=== PATIENT | male | born 1970 | race Caucasian/White ===

== ENCOUNTER 2021-12-31 20:08 | Inpatient (IN) | payer SELFPAY ==
[~2021-12-31] VITALS: Ht 160 cm; Wt 67.0 kg
[2021-12-31 21:40] LABS: BASO # 0.1 K/mm3 (0.0-0.2); BASO % 1.2 % (0.0-2.0); EOS # 0.1 K/mm3 (0.0-0.7); EOS % 1.3 % (0.0-4.0); GRAN # 2.9 K/mm3 (1.4-6.5); GRAN % 37.9 % (42.2-75.2); HEMOGLOBIN 12.5 g/dl (13.5-18.0); LYMPH # 4.2 K/mm3 (1.2-3.4); LYMPH % 54.6 % (20.0-51.0); MEAN CELL VOLUME 94 fl (80.0-100.0); MEAN CORPUSCULAR HEMOGLOBIN 30 pg (27-31); MEAN CORPUSCULAR HGB CONC 32 g/dl (33.0-37.0); MEAN PLATELET VOLUME 10.4 fl (7.4-10.4); MONO # 0.4 K/mm3 (0.1-0.6); MONO % 4.9 % (1.7-9.3); PLATELET COUNT 206 K/mm3 (130-400); RED BLOOD COUNT 4.17 M/mm3 (4.20-5.60); REDCELL DISTRIBUTION WIDTH-CV 13.8 % (11.5-14.5)
[2021-12-31 21:53] LABS: ALBUMIN 3.3 gm/dL (3.5-5.0); BILIRUBIN,TOTAL 0.5 mg/dL (0.2-1.2); C-REACTIVE PROTEIN 0.7 mg/dL (0.00-0.50); CALCIUM 8.2 mg/dL (8.4-10.2); CREATININE, serum 0.91 mg/dL (0.72-1.25); POTASSIUM 3.8 mmol/L (3.5-4.5); TOTAL PROTEIN 6.4 gm/dL (6.2-8.1)
[2021-12-31 22:01] LABS: TROPONIN-I 0.19 ng/mL (0.00-0.033)
--- NOTE | 2022-01-01 00:39 | NUR ---
RECEIVED REPORT FROM Nabil RN, CODIE. WAITING FOR PATIENT ARRIVAL FROM ED FOR ADMIT TO ROOM 329. INFORMED THAT PATIENT IS FRENCH SPEAKING ONLY.
--- NOTE | 2022-01-01 00:56 | NUR ---
PATIENT ARRIVED TO ROOM VIA W/C WITH E.RSarah PCT TRANSPORTING PATIENT. PATIENT UP TO BATHROOM. TELE IN PLACE. DAUGHTER PRESENT TO ASSIST WITH ADMIT QUESTIONS.
[2022-01-01 01:04] VITALS: BP 134/81; PULSE 98; TEMP 97.9
[2022-01-01 01:21] LABS: C-REACTIVE PROTEIN 0.71 mg/dL (0.00-0.50); MAGNESIUM 2.2 mg/dL (1.6-2.6); PHOSPHOROUS 3.9 mg/dL (2.3-4.7)
[2022-01-01 01:41] LABS: THYROID STIMULATING HORMONE 3.197 uIU/mL (0.350-4.940)
--- NOTE | 2022-01-01 04:17 | NUR ---
PER TELE, RHYTHM CHANGES WITH PATIENT DENYING CHEST PAIN/SOA AT THIS TIME. HR MID 90'S PER TELE. INFORMED AUGUSTIN BEE OF RHYTHM CHANGES, PROVIDER WANTING 0500 LABS TO BE DRAWN NOW AND LET THEM KNOW OF RESULTS.
[2022-01-01 04:35] VITALS: BP 133/68; PULSE 95; TEMP 98.7
[2022-01-01 04:39] LABS: CALCIUM 8.5 mg/dL (8.4-10.2); CREATININE, serum 0.86 mg/dL (0.72-1.25); POTASSIUM 3.6 mmol/L (3.5-4.5)
--- NOTE | 2022-01-01 05:22 | NUR ---
INFORMED AUGUSTIN BEE OF LABS RESULTED WITH ORDERS GIVEN TO INITIATE POTASSION REPLACEMENT PROTOCOL AND FOR LAB DRAW FOR MAGNESIUM ON BLOOD ALREADY DRAWN EARLIER.
[2022-01-01 06:15] LABS: COLLECTION METHOD CLEAN CATCH
[2022-01-01 06:21] LABS: PH 5 (5-8); SQUAMOUS EPITHELIAL None Seen /hpf (0-10); URINE APPEARANCE Clear (CLEAR/HAZY); URINE BACTERIA None Seen /hpf (NONE SEEN); URINE BILIRUBIN Negative (NEGATIVE); URINE BLOOD 1+ (NEGATIVE); URINE COLOR Straw (YELLOW); URINE GLUCOSE Negative (NEGATIVE); URINE KETONE Negative (NEGATIVE); URINE LEUKOCYTE ESTERASE Negative (NEGATIVE); URINE NITRATE Negative (NEGATIVE); URINE PROTEIN(semi-quant) Negative (NEGATIVE); URINE RBC 0-2 /hpf (0-2); URINE UROBILINOGEN Negative (NEGATIVE)
[2022-01-01 07:00] VITALS: BP 123/96; PULSE 75; TEMP 97.6
--- NOTE | 2022-01-01 07:21 | NUR ---
CHANGE OF SHIFT REPORT GIVEN TO DAY SHIFT RNMAT.
--- NOTE | 2022-01-01 07:30 | NUR ---
PATIENT IS [place] SPEAKING ONLY. USED TRANSLATION TO COMMUNICATE. A&O. VSS ON TELE. NOTED PVC'S AND HEART SOUNDS IRREGULAR AT TIMES. DENIES CHEST PAIN OR SOA. PATIENT DOES REPORT SOME SWELLING IN HIS FEET/ANKLES. NOTED +1 BLE. POSITIVE PEDAL PULSES. ALSO NOTED HALF DOLLAR SIZE LUMP TO RIGHT SHOULDER WITH PEA SIZE SCAB. PATIENT REPORTS LUMP HAS BEEN THERE FOR YEARS AND HE HASN'T SEE A PCP FOR MANY YEARS. NO MEDICAL HX OTHER THAN PATIENT REPORTS HE IS A SMOKER. HEAD TO TOE ASSESSMENT COMPLETE. NOTED FC IN LUNG FIELD BASES. 1,500CC FR. LOW SODIUM DIET. CARDS CONSULTED. ECHO SCHEDULED TODAY. RIGHT AC IV TO INT. NO OTHER NEEDS AT THIS TIME. CALL LIGHT IN REACH.
--- NOTE | 2022-01-01 09:05 | NUR ---
CARDIOLOGY TEAM AT BEDSIDE. LIVE TRUCK OPERATOR LINE CALLED TO DISCUSS HEPARIN GTT AND HEART CATH FOR TOMORROW.
--- NOTE | 2022-01-01 09:44 | NUR ---
Initial visit; Patient thanked [employer] for offering "good morning" and prayer this morning. [employer] wished patient well.
[2022-01-01 09:58] LABS: PARTIAL THROMBOPLASTIN TIME 34.1 SECONDS (26.0-37.0)
--- NOTE | 2022-01-01 09:59 | NUR ---
DAUGHTER TRANSFERED INTO PATIENT ROOM TO TALK WITH HIM. DAUGHTER SPEAKS FINNISH WELL. PATIENT'S OTHER DAUGHTER WHO ALSO SPEAKS FINNISH WILL BE HERE LATER TODAY.
--- NOTE | 2022-01-01 10:56 | NUR ---
Shift assessment completed. Respirations at 24 breaths per minute, with fine crackles in bilateral lower bases. Apical pulse at 100 BPM with PVC noted, primary RN notified. Patient is on telemettry. Patient has an INT in the Right AC, no infiltration or phelbitis noted. Raised, slightly red area approximately 4cm-5cm in diameter with peas sized scab on the apex noted on right upper back, primary RN notified.
--- NOTE | 2022-01-01 11:04 | NUR ---
connection worker met with patient to discuss discharge plan. Patient's daughter Agustina ([phone]) present at bedside. Patient lives alone in [place], however his father is in town and currently staying with him. Patient is independent with his ADL's and does not utilize any DME to assist with mobility. Patient has no oxygen needs at home. Patient is established with the [facility], but has not been there for a few years. Educated Agustina that upon d/c, patient will be set up with a follow up. Patient utilizes [facility] for medications. Patient does not have a DPOA-HC established and does not wish to create one at this time. Patient has 3 grown daughters and is seperated from his (Ama Mcdonough [phone]) but not legally . Education provided on who his legal NOK is, and the patient is agreeable to Ama being his legal NOK. Both patient and Agustina verbalize their understanding of the above. Once medically ready patient is planning on returning home with no concerns. Piper with financial counseling contacted to complete FAA with patient. Educated both the patient and his daughter on what the FAA is and how it would help the patient. Discharge plan: Home; will need to be re-established with the [facility]
[2022-01-01 11:13] VITALS: BP 154/94; PULSE 92; TEMP 97.3
[2022-01-01 16:00] VITALS: BP 140/88; PULSE 46; TEMP 98.7
--- NOTE | 2022-01-01 19:25 | NUR ---
RECEIVED CHANGE OF SHIFT REPORT FROM DAY SHIFT RN.
[2022-01-01 19:57] VITALS: BP 137/72; PULSE 44; TEMP 98.5
[2022-01-02] VITALS (331 sets, daily range): BP systolic 58–155; BP diastolic 32–82; PULSE 54–99; TEMP 97.2–98.4; O2SAT 87–100
--- NOTE | 2022-01-02 02:28 | NUR ---
PATIENT RESTING/SLEEPING. BREATHING NONLABORED AND DOES NOT WAKE WHEN DOOR TO ROOM IS OPENED BY NURSING ON ROUNDS. IV HEPARIN DRIP INFUSING AT 12 ML/HR PER HEP PROTOCOL, NEXT HEP XA LAB DUE AT 0400. TELE IN PLACE. PATIENT UP TO BATHROOM PRN WITH NO REPORTED PROBLEMS OR CONCERNS. PATIENT HAS BEEN NPO SINCE MIDNIGHT.
[2022-01-02 04:24] LABS: HEMATOCRIT 43.3 % (42.0-52.0); HEMOGLOBIN 14.4 g/dl (13.5-18.0); MEAN CELL VOLUME 91 fl (80.0-100.0); MEAN CORPUSCULAR HEMOGLOBIN 30 pg (27-31); MEAN CORPUSCULAR HGB CONC 33 g/dl (33.0-37.0); PLATELET COUNT 218 K/mm3 (130-400); RED BLOOD COUNT 4.76 M/mm3 (4.20-5.60); REDCELL DISTRIBUTION WIDTH-CV 13.8 % (11.5-14.5)
[2022-01-02 04:26] LABS: INR 1.3 (0.8-3.0); PROTHROMBIN TIME 13.9 SECONDS (9.7-12.8)
[2022-01-02 04:29] LABS: PARTIAL THROMBOPLASTIN TIME 87.1 SECONDS (26.0-37.0)
[2022-01-02 04:30] LABS: CALCIUM 8.7 mg/dL (8.4-10.2); CHOLESTEROL RISK RATIO 5.1; CREATININE, serum 0.96 mg/dL (0.72-1.25); MAGNESIUM 2.4 mg/dL (1.6-2.6); POTASSIUM 4.1 mmol/L (3.5-4.5)
--- NOTE | 2022-01-02 07:18 | NUR ---
CHANGE OF SHIFT REPORT GIVEN TO DAY SHIFT RNSARIKA.
--- NOTE | 2022-01-02 08:08 | NUR ---
Pt resting with eyes closed, even non labored breathing upon entering room. Pt did wake easily when spoken to. [employer] door to door fundraising collector for morning assessment. Pt stated he had no questions regarding the consent, consent signed. Call light within reach, will continue to monitor
--- NOTE | 2022-01-02 10:07 | NUR ---
Shift assessment complete. Respirations at 22 per minute, fine crackles noted in left lower lobe. Apical pulse of 62 BPM with PVC noted. Patient is on a heparin drip at 12ml/hr. Patient is on telemetry. Patient is NPO in preparation for a cardiac catheterization.
--- NOTE | 2022-01-02 11:55 | NUR ---
SEE MERGE FOR ALL MEDICATION ADMINISTRATION TIMES/DOSAGES AND INTRA/POST PROCEDURE SEDATION ASSESSMENTS.
--- NOTE | 2022-01-02 13:03 | NUR ---
Arrived to the unit from label designer. Patient alert and oriented and in no distress. Cath site assessed; dressing clean and intact with no hematoma formation. +2 pedal pulses noted bilaterally.
--- NOTE | 2022-01-02 13:45 | NUR ---
Called to bedside by patient's daughter as patient was reporting nausea. Patient was not retching or coughing at this time. Arterial line was reading 50's systolic with a good waveform. Dr. Tao called and received orders for Atropine/dobutamine and neosynephrine. Patient appeared very fatigued but wsa alert and able to communicate during episode of hypotension.
--- NOTE | 2022-01-02 16:23 | NUR ---
Updated Dr. Tao on patient status; VS ninoskay stable. Neosynephrine has been able to be slowly titrated down to maintain systolic BP greater than 95. Heparin drip d/c'd off of EMAR.
[2022-01-03] VITALS (560 sets, daily range): BP systolic 99–138; BP diastolic 64–113; PULSE 63–93; TEMP 97.8–98.9; O2SAT 87–100
[2022-01-03 04:40] LABS: HEMATOCRIT 38.7 % (42.0-52.0); HEMOGLOBIN 13.1 g/dl (13.5-18.0); MEAN CELL VOLUME 91 fl (80.0-100.0); MEAN CORPUSCULAR HEMOGLOBIN 31 pg (27-31); MEAN CORPUSCULAR HGB CONC 34 g/dl (33.0-37.0); MEAN PLATELET VOLUME 9.7 fl (7.4-10.4); PLATELET COUNT 209 K/mm3 (130-400); RED BLOOD COUNT 4.27 M/mm3 (4.20-5.60); REDCELL DISTRIBUTION WIDTH-CV 13.7 % (11.5-14.5)
[2022-01-03 04:54] LABS: CALCIUM 8.1 mg/dL (8.4-10.2); CREATININE, serum 1.04 mg/dL (0.72-1.25); POTASSIUM 3.8 mmol/L (3.5-4.5)
--- NOTE | 2022-01-03 15:12 | NUR ---
PT ADMITTED TO UNIT. ORIENTED PT TO ROOM, FATHER AT BEDSIDE AND DAUGHTER ON PHONE. WILL CONTINUE TO MONITOR.
[2022-01-04 04:23] VITALS: BP 133/64; PULSE 73; TEMP 97.8
--- NOTE | 2022-01-04 06:07 | NUR ---
PT HAD UNEVENTFUL NIGHT THIS SHIFT. VSS. THIS NURSE CONFIRMED PT DIASTOLIC WNL. PT DENIES PAIN,N,V,D,SOA,PALPITAIONS. ALL NEEDS MET THIS SHIFT. CALL LIGHT WITHIN REACH.
[2022-01-04 06:31] LABS: BASO # 0.1 K/mm3 (0.0-0.2); BASO % 0.7 % (0.0-2.0); EOS # 0.1 K/mm3 (0.0-0.7); GRAN # 5.2 K/mm3 (1.4-6.5); HEMATOCRIT 43.1 % (42.0-52.0); HEMOGLOBIN 14.3 g/dl (13.5-18.0); LYMPH % 33.1 % (20.0-51.0); MEAN CELL VOLUME 91 fl (80.0-100.0); MEAN CORPUSCULAR HEMOGLOBIN 30 pg (27-31); MEAN CORPUSCULAR HGB CONC 33 g/dl (33.0-37.0); MEAN PLATELET VOLUME 10.3 fl (7.4-10.4); MONO # 0.6 K/mm3 (0.1-0.6); PLATELET COUNT 238 K/mm3 (130-400); RED BLOOD COUNT 4.75 M/mm3 (4.20-5.60); REDCELL DISTRIBUTION WIDTH-CV 13.6 % (11.5-14.5)
[2022-01-04 06:42] LABS: ALBUMIN 3.4 gm/dL (3.5-5.0); CALCIUM 9.1 mg/dL (8.4-10.2); CREATININE, serum 0.97 mg/dL (0.72-1.25); MAGNESIUM 2.3 mg/dL (1.6-2.6); PHOSPHOROUS 3.3 mg/dL (2.3-4.7)
--- NOTE | 2022-01-04 07:38 | NUR ---
Shift assessment completed with student nurse, Aylin. Patient is primarily Irish speaking. This RN is able to communicate with the patient sufficiently. Paper Folding Machine Operator offered and declined. Patient's daughter will be here and speaks Nigerian, will help w/ translating.
[2022-01-04 07:49] VITALS: BP 101/62; PULSE 63; TEMP 97.9
--- NOTE | 2022-01-04 09:53 | NUR ---
Per Mirlande FERGUSON, verified B/P reading of 101/62 HR 63 she gave ok to give Metroprol ER 25mg.
[2022-01-04] MEDS ORDERED: LIPITOR 80MG80 MG PO (11:16)
[2022-01-04] MEDS ORDERED: TOPROL XL 25MG25 MG PO (11:17)
[2022-01-04] MEDS ORDERED: NITROSTAT0.4 MG/TAB SL (11:17)
[2022-01-04] MEDS ORDERED: LASIX 20MG TABL20 MG PO (11:23)
[2022-01-04] MEDS ORDERED: CORDARONE200 MG/TAB PO (11:26)
[2022-01-04] MEDS ORDERED: COZAAR 25MG25 MG/TAB PO (11:27)
[2022-01-04] MEDS ORDERED: K-DUR 10 MEQ T10 MEQ PO (11:27)
[2022-01-04] MEDS ORDERED: ASPIRIN E.C. 8181 MG PO (11:40)
[2022-01-04] MEDS ORDERED: ASPIRIN 81M81 MG/TA2 PO (11:41)
[2022-01-04 12:01] VITALS: BP 127/80; PULSE 66; TEMP 98.2
--- NOTE | 2022-01-04 12:55 | NUR ---
WILL attended clinical rounds. The patient's daughter at bedside. The patient's daughter interpreted. The clinical team is ready to discharge the patient today. WILL staffed with pharmacy. The patient's meds will cost around $100 a month, since he is self pay. WILL informed the patient's daughter. His daughter reports that they are able to afford and pay for his meds. WILL contacted [facility] and secured the patient a follow up appointment there on 01/16 at 1245. WILL informed the community development director of the appointment. No additional needs at this time.
--- NOTE | 2022-01-04 13:02 | NUR ---
First visit from the lift driver. No needs right now.
--- NOTE | 2022-01-04 15:32 | NUR ---
Patient discharged home. Education provided to daughter and patient; Daughter translated all information and patient verbalized understanding. IV and telemetry were discontinued by this RN w/ any difficulty.
== END 2022-01-04 14:50 | disposition home or self-care (01) | DRG 281 ==
LOC: COL.ER 20:08 → SURG 01-01 00:06 → ICU 01-02 13:11 → SURG 01-02 13:11 → ICU 01-02 13:11 → MEDICAL 01-03 15:21
PROVIDERS: Internal Medicine Adult Congenital Heart Disease; Nurse Practitioner Family; Nurse Practitioner Primary Care; ADMIT Internal Medicine
PROC: 4A023N6 Measurement of Cardiac Sampling and Pressure, Right Heart, Percutaneous Approach (ICD-10-PCS; principal; 2022-01-01)
PROC: B2111ZZ Fluoroscopy of Multiple Coronary Arteries using Low Osmolar Contrast (ICD-10-PCS; 2022-01-01)
DX: I50.21 Acute systolic (congestive) heart failure (principal); I21.4 Non-ST elevation (NSTEMI) myocardial infarction; E87.2 Acidosis; I42.8 Other cardiomyopathies; F17.210 Nicotine dependence, cigarettes, uncomplicated; D64.9 Anemia, unspecified; R73.9 Hyperglycemia, unspecified; I45.10 Unspecified right bundle-branch block; I49.3 Ventricular premature depolarization; R94.31 Abnormal electrocardiogram [ECG] [EKG]; I34.0 Nonrheumatic mitral (valve) insufficiency; I27.20 Pulmonary hypertension, unspecified; I25.10 Atherosclerotic heart disease of native coronary artery without angina pectoris
CPT/HCPCS: OP; 99222-AI; 99232-AI; 99233-AI; 99239; C1894; J0461; J1250; J1644; J1940; J2370; J7050; Q9967